=== PATIENT | female | born 1980 | race Caucasian/White ===

== ENCOUNTER 2018-05-07 09:18 | Emergency (ER) | payer OTHER, SELFPAY ==
--- NOTE | 2018-05-07 09:23 | ED.GENADULT ---
HPI - General Adult General Chief complaint: Upper Respiratory Symptoms Stated complaint: ?PNEUMONIA, FLU? Time Seen by Provider: 05/07/18 09:22 Source: patient Mode of arrival: ambulatory Limitations: no limitations History of Present Illness HPI narrative: 38-year-old female here for evaluation of approximately 24 hr of a cough and congestion. She states that she gets ?bronchitis? on a regular basis. She states that a couple days ago she took a Z-Chuck that she had at home because of this ?history of bronchitis? she also has an inhaler at home because of this. She states her symptoms did improve but are now back again. Related Data Allergies Allergy/AdvReac Type Severity Reaction Status Date / Time No Known Drug Allergies Allergy Verified 05/07/18 09:26 Review of Systems Constitutional Reports chills, Reports fever(s), Denies headache(s) and Reports lethargy ENT Ears, Nose, Mouth, and Throat: Denies headache(s), Denies sinus pain, Reports sinus pressure and Denies sore throat Cardiovascular Denies chest pain and Denies dyspnea Respiratory Reports cough, Denies dyspnea and Denies wheezing Gastrointestinal Gastrointestinal: Denies abdominal pain and Denies change in bowel habits Genitourinary Denies dysuria Musculoskeletal Reports myalgias and Denies arthralgias Integumentary/Breasts Denies rash Neurologic Denies behavioral changes and Denies headache(s) Psychiatric Denies behavioral changes Hematologic/Lymphatic Comments: Not on anticoagulation Allergic/Immunologic Denies urticaria and Denies wheezing PFSH Medical History Healthy adult (Acute) Surgical History No pertinent past surgical history (Acute) Social History Smoking Status: Current every day smoker Exam Initial Vital Signs Initial Vital Signs: Vital Signs Temperature 99.6 F 05/07/18 09:26 Pulse Rate 100 H 05/07/18 09:26 Respiratory Rate 20 05/07/18 09:26 Blood Pressure 143/90 H 05/07/18 09:26 Pulse Oximetry 100 05/07/18 09:26 Const General: cooperative, healthy appearing, comfortable, well developed, well groomed and No acute distress Orientation: alert, awake and oriented x3 HENMT Head: normal to inspection and normocephalic Resp Effort & Inspection: normal respiratory effort Auscultation: clear to auscultation bilaterally Cardio Rate: regular rate Rhythm: regular rhythm Pulses: radial pulses present GI Inspection: non-distended Skin Lesions: no lesions Rashes: no rashes Neuro General: alert, awake and oriented x3 Extrem General: normal to inspection and No edema Psych Appearance: grossly normal and well kempt Course Orders Ordered: ED Orders 05/07/18 09:23 XR chest 2V Stat 05/07/18 09:32 Influenza A and B by PCR Rapid Stat Vital Signs - 8 hr 05/07/18 09:26 Temperature 99.6 F Pulse Rate 100 H Respiratory Rate 20 Blood Pressure 143/90 H Pulse Oximetry 100 Medical Decision Making Lab Data Lab results reviewed: Yes I reviewed the patient's lab results. Lab Results 05/07/18 Range/Units 09:32 Influenza A & B (PCR) Negative (Negative) Imaging Data Chest x-ray: Radiologist's impression: PROCEDURE: XR CHEST 2V INDICATIONS: cough with fever TECHNIQUE: 2 views of the chest were acquired. COMPARISON: None. FINDINGS: Surgical changes and devices: None. Lungs and pleura: No pleural effusions or pneumothorax. Lungs are clear. Mediastinum: Mediastinal contours are normal. Heart size is normal. Bones and chest wall: No suspicious bony abnormalities. Soft tissues appear unremarkable. IMPRESSION: No acute cardiopulmonary disease. Dictated by: Tom Thao M.D. on 05/07/2018 at 8:48 Approved by: Tom Thao M.D. on 05/07/2018 at 8:48 [facility] Narrative Medical decision making narrative: Patient not in any respiratory distress. Has a clear lung exam. Chest x-ray is negative. Flu was negative. Discussed all this with the patient. Recommended decongestants. Patient was given return precautions. She expressed understanding and agreement with plan. Discharge Plan Departure Patient Disposition: Home Clinical Impression: Upper respiratory infection Instructions: DI for Viral Upper Respiratory Infection -- Adult Activity Restrictions/Additional Instructions: Your flu test today was negative and the chest x-ray shows no signs of pneumonia. I would recommend you continue year inhaler as needed. I would also recommend a decongestant such as Claritin or Concepcion or Zyrtec if you are not already on 1 of these medications. Call your primary care doctor for a follow-up.
[2018-05-07 09:26] VITALS: BP 143/90; PULSE 100; RESP 20; TEMP 37.6; O2SAT 100; BMI 29.2
--- NOTE | 2018-05-07 09:29 | PC.NURSE ---
noted non productive cough while in ER
[2018-05-07 09:52] LABS: Influenza A and B by PCR Rapid Negative (Negative)
[2018-05-07 10:41] VITALS: BP 105/78; PULSE 89; RESP 16; TEMP 37.4; O2SAT 99
== END 2018-05-07 10:37 | disposition home or self-care (01) ==
PROVIDERS: Emergency Provider Emergency Medicine
DX: J06.9 Acute upper respiratory infection, unspecified (principal)
CPT/HCPCS: 71046; 87400; 99282; 99283